=== PATIENT | female | born 1980 | race Two or more races ===

== ENCOUNTER 2023-10-10 07:59 | Day surgery (SDC) | payer OTHER ==
[2023-10-10 08:35] LABS: PREGNANCY TEST URINE QUAL NEGATIVE (NEGATIVE)
[2023-10-10] MEDS ORDERED: EPINEPHRINE (1:1000) 1 MG/ML AMPUL ONE (12:54)
[2023-10-10] MEDS ORDERED: ROPIVACAINE HCL 0.5% 5 MG/ML 30ML VIAL ONE ×2 (12:54→12:55)
[2023-10-10] MEDS ORDERED: FENTANYL PF 100MCG/2ML AMPUL ONE (12:56)
[2023-10-10] MEDS ORDERED: methylPREDNISolone ACETATE 80 MG/ML VIAL ONE (13:37)
[2023-10-10] MEDS ORDERED: BUPIVACAINE 0.5 % PF 150 MG/30 ML VIAL ONE (13:37)
[2023-10-10] MEDS ORDERED: HYDROCODONE/APAP 5/325MG TABLET PO PRN (15:30)
== END 2023-10-10 15:55 | disposition home or self-care (01) ==
LOC: DS 07:59
PROVIDERS: ATTEND Specialist
DX: M75.41 Impingement syndrome of right shoulder (principal); M65.88 Other synovitis and tenosynovitis, other site; E11.9 Type 2 diabetes mellitus without complications; Z79.899 Other long term (current) drug therapy
CPT/HCPCS: 29822; 29826; 82962; 84703; A4217; A4565; J0171; J0690; J1040; J1100; J1885; J2405; J2704; J2765; J2795; J3010; J3490; J7030